=== PATIENT | female | born 1975 | race Caucasian/White ===

== ENCOUNTER → 2017-10-21 | Outpatient (CLI) | payer BC ==
[~2017-10-21] MED LIST: ELET40TA PO; LRT5 PO; OXYC-57 PO; PANT40TA PO; ROPI1TAB PO
== END | disposition home or self-care (01) ==
LOC: C.PAPS 09:34
PROVIDERS: ATTEND Physician Assistant
DX: Z01.419 Encounter for gynecological examination (general) (routine) without abnormal findings (principal)

== ENCOUNTER → 2017-12-01 | Outpatient (CLI) | payer BC ==
[2017-12-04 12:57] LABS: HERPES SIMPLEX VIRUS CULT NOT ISOLATED (NOT ISOLATED)
== END | disposition home or self-care (01) ==
LOC: C.LABSPEC 16:00
PROVIDERS: ATTEND Physician Assistant
DX: N94.9 Unspecified condition associated with female genital organs and menstrual cycle (principal)